=== PATIENT | female | born 1980 | race Caucasian/White ===

== ENCOUNTER 2023-04-10 09:06 | Outpatient (CLI) | payer BC | END 2023-04-10 09:07 | disposition home or self-care (01) | LOC: CSHCT 09:06 | PROVIDERS: ATTEND Physician Assistant Medical | DX: K80.71 Calculus of gallbladder and bile duct without cholecystitis with obstruction (principal); R10.13 Epigastric pain; R19.7 Diarrhea, unspecified; K76.0 Fatty (change of) liver, not elsewhere classified | CPT/HCPCS: 74170 ==